=== PATIENT | female | born 1975 | race Two or more races ===

== ENCOUNTER 2023-04-02 07:01 | Emergency (ER) | payer OTHER ==
[~2023-04-02] VITALS: Ht 167.6 cm; Wt 66.4 kg
[2023-04-02 07:35] LABS: CLARITY,URINE CLOUDY (Clear); COLOR,URINE YELLOW (Yellow); GLUCOSE, URINE NEGATIVE (Neg); KETONES,URINE NEGATIVE (Neg); LEUKOCYTE ESTERASE ,URINE MODERATE (Neg); NITRITES, URINE NEGATIVE (Neg); OCCULT BLOOD,URINE MODERATE (Neg); PH,URINE 8.5 (4.8-8.0); PROTEIN,URINE TRACE mg/dl (Neg); UROBILINOGEN,URINE 0.2 E.U/dL (0.2-1.0)
[2023-04-02 07:36] LABS: URINE HCG NEGATIVE (NEG)
[2023-04-02 07:40] LABS: UA COLLECTION TYPE CLN CATCH MIDSTREAM
[2023-04-02] MEDS ORDERED: morphine 4 MG/ML inj SYRINge IV PRN (07:40)
[2023-04-02] MEDS ORDERED: ondansetron/PF 4mg/2ml inj IV ONE (07:40)
[2023-04-02] MEDS ORDERED: normal saline 1000ML IV soln IVB ONE (07:40)
[2023-04-02 07:41] LABS: BACTERIA,URINE 2+ /HPF (Neg); RBC,URINE 20-50 /HPF (0-2); SQUAMOUS EPITHELIAL CELL,UR FEW /LPF (FEW); WBC CLUMPS,URINE MANY /HPF (NEGATIVE); WBC,URINE TNTC /HPF (0-4)
[2023-04-02 07:54] VITALS: BP 93/53
[2023-04-02 08:11] LABS: BASOPHILS % (AUTO) 0.2 % (0-1); EOSINOPHILS # (AUTO) 0.1 X10'3 (0-0.9); EOSINOPHILS % (AUTO) 0.8 % (0-6); HEMATOCRIT 36.1 % (35.0-45.0); HEMOGLOBIN 12.3 g/dl (12.0-16.0); LYMPHOCYTES # (AUTO) 1.2 X10'3 (1.1-4.8); MEAN CORPUSCULAR HEMOGLOBIN 32.1 PG (27.0-31.0); MEAN CORPUSCULAR HGB CONC 34.1 g/dL (33.0-36.5); MEAN PLATELET VOLUME 7.6 FL (7.4-10.4); MONOCYTES # (AUTO) 0.7 X10'3 (0-0.9); MONOCYTES % (AUTO) 6.8 % (2-12); NEUTROPHILS % (AUTO) 80.2 % (42-75); PLATELET COUNT 231 X10'3 (140-440); RED BLOOD COUNT 3.84 X10'6 (4.20-5.60); RED CELL DISTRIBUTION WIDTH 12.6 % (11.5-14.5)
[2023-04-02 08:21] LABS: ALANINE AMINOTRANSFERASE 11 U/L (12-78); ALBUMIN 3.3 G/DL (3.4-5.0); ALBUMIN/GLOBULIN RATIO 1.1 (1.1-1.5); ALKALINE PHOSPHATASE 52 IU/L (46-116); ANION GAP 5 (8-16); ASPARTATE AMINO TRANSFERASE 12 U/L (10-37); BILIRUBIN,TOTAL 0.6 MG/DL (0.1-1.0); BLOOD UREA NITROGEN 12 MG/DL (7-18); BUN/CREATININE RATIO 18.2 (10.0-20.0); CALCIUM 8.2 MG/DL (8.5-10.1); CHLORIDE 104 MMOL/L (99-107); CREATININE 0.66 MG/DL (0.40-0.90); GLUCOSE 100 MG/DL (70-104); LIPASE 78 U/L (73-393); POTASSIUM 3.7 MMOL/L (3.5-5.1); SODIUM 137 MMOL/L (135-145); TOTAL CARBON DIOXIDE 28.3 MMOL/L (24-32); TOTAL PROTEIN 6.3 G/DL (6.4-8.2); eGFR > 90 ML/MIN
[2023-04-02] MEDS ORDERED: CefTRIAXone/D5W-Rocephin 1gm 50 ML IV ONE (09:20)
[2023-04-02] MEDS ORDERED: HYDR-3965 PO (10:59)
[2023-04-02] MEDS ORDERED: CEPH-585 PO (10:59)
[2023-04-02] MEDS ORDERED: PHEN-716 PO (11:12)
== END 2023-04-02 11:26 | disposition home or self-care (01) ==
LOC: ER 07:02
DX: N39.0 Urinary tract infection, site not specified (principal); Z79.899 Other long term (current) drug therapy
CPT/HCPCS: 36415; 74176; 80053; 81001; 81025; 83690; 85025; 87077; 87088; 87186; 96361; 96365; 96375; 99285; J0696; J2270; J2405; J7030